=== PATIENT | female | born 1975 | race Caucasian/White ===

== ENCOUNTER 2017-02-06 11:17 | Emergency (ER) | payer OTHER ==
[~2017-02-06] VITALS: Ht 154.9 cm; Wt 64.5 kg
[2017-02-06 11:23] VITALS: Ht 154.9 cm; Wt 64.5 kg
[2017-02-06 12:49] LABS: ADD UMIC NO; URINE BILIRUBIN (Dip) NEGATIVE (NEGATIVE); URINE BLOOD (Dip) NEGATIVE (NEGATIVE); URINE COLOR LT. YELLOW (YELLOW); URINE KETONES (Dip) NEGATIVE (NEGATIVE); URINE LEUKOCYTE ESTERASE (Dip) NEGATIVE (NEGATIVE); URINE NITRITE (Dip) NEGATIVE (NEGATIVE); URINE TOTAL PROTEIN (Dip) NEGATIVE (NEGATIVE); URINE UROBILINOGEN (Dip) 0.2 E.U./dL (0.1-1.0)
[2017-02-06 13:05] LABS: ADD SCAN DIFF NO
[2017-02-06 13:07] LABS: BASOPHILS % 0.5 % (0.0-2.0); EOSINOPHILS # 0.2 10^3/ul (0.0-0.5); HEMOGLOBIN 11.6 g/dl (12.0-16.0); LYMPHOCYTES # 1.8 10^3/ul (0.8-2.9); LYMPHOCYTES % 23.6 % (15.0-51.0); MEAN CORPUSCULAR HEMOGLOBIN 30.1 pg (29.0-33.0); MEAN CORPUSCULAR HGB CONC 33.1 g/dl (32.0-37.0); MEAN CORPUSCULAR VOLUME 90.7 fl (82.0-101.0); MEAN PLATELET VOLUME 10.4 fl (7.4-10.4); MONOCYTE # 0.7 10^3/ul (0.3-0.9); NEUTROPHIL # 4.8 10^3/ul (1.6-7.5); NEUTROPHILS % 64.2 % (39.0-77.0); PLATELET COUNT 321 10^3/UL (140-415); RED BLOOD COUNT 3.86 10^6/ul (4.20-5.40); RED CELL DISTRIBUTION WIDTH 12.1 % (11.5-14.5); WHITE BLOOD COUNT 7.5 10^3/ul (4.8-10.8)
[2017-02-06] MEDS ORDERED: ACET500C5 PO (14:30)
[2017-02-06] MEDS ORDERED: PRENAT PO (14:31)
--- NOTE | 2017-02-06 14:38 | ERD ---
ER Documentation Chief Complaint Date/Time DATE: 02/06/17 TIME: 14:36 Chief Complaint Complains of abdominal pain x 1 month worse today HPI This 5-year-old female complains of lower abdominal pain intermittently for last 2 weeks. She is approximately 8 weeks by dates. Should the pain is greater on the left than the right. She denies any vaginal bleeding, fevers , vomiting. Patient is a G3 para 2. Patient has a concern that her second child has Down syndrome she is worried pain might suggest that there is an abnormality with her such as Down syndrome. ROS All systems reviewed and are negative except as per history of present illness. Medications Home Meds Active Scripts Multivit/Min/Fol Ac/Iron/Pren* ( S*) 1 Tab Tab, 1 TAB PO DAILY, #100 TAB Prov:LULA GREGORY MD 02/06/17 Acetaminophen* (Tylophen*) 500 Mg Capsule, 1 CAP PO Q6H Y for PAIN AND OR ELEVATED TEMP, #15 CAP Prov:LULA GREGORY MD 02/06/17 Allergies Allergies: Coded Allergies: No Known Allergy (Unverified , 02/06/17) PMhx/Soc History of Surgery: No Anesthesia Reaction: No Hx Neurological Disorder: No Hx Respiratory Disorders: No Hx Cardiac Disorders: No Hx Psychiatric Problems: No Hx Miscellaneous Medical Probl: No Hx Alcohol Use: No Hx Substance Use: No Hx Tobacco Use: No Smoking Status: Never smoker Physical Exam Vitals Vital Signs Date Time Temp Pulse Resp B/P Pulse Ox O2 Delivery O2 Flow Rate FiO2 02/06/17 11:23 97.8 83 20 118/62 98 Physical Exam Const: [], [id number] per Head: Atraumatic Eyes: Normal Conjunctiva ENT: Normal External Ears, Nose and Mouth. Neck: Full range of motion..~ No meningismus. Resp: Clear to auscultation bilaterally Cardio: Regular rate and rhythm, no murmurs Abd: Soft, minimal tenderness in the lower abdomen possibly left greater than right. No tenderness at McBurney's point no Tee sign and no rebound per , non distended. Normal bowel sounds Skin: No petechiae or rashes Back: No midline or flank tenderness Ext: No cyanosis, or edema Neur: Awake and alert Psych: Normal Mood and Affect Result Diagram: 02/06/17 1250 Results 24 hrs Laboratory Tests Test 02/06/17 12:20 02/06/17 12:50 02/06/17 14:13 Urine Color LT. YELLOW Urine Clarity CLEAR Urine pH 6.0 Urine Specific [place] 1.025 Urine Ketones NEGATIVE Urine Nitrite NEGATIVE Urine Bilirubin NEGATIVE Urine Urobilinogen 0.2 E.U./dL Urine Leukocyte Esterase NEGATIVE Urine Hemoglobin NEGATIVE Urine Glucose 0.25%% Urine Total Protein NEGATIVE White Blood Count 7.510^3/ul Red Blood Count 3.8610^6/ul Hemoglobin 11.6g/dl Hematocrit 35.0% Mean Corpuscular Volume 90.7fl Mean Corpuscular Hemoglobin 30.1pg Mean Corpuscular Hemoglobin Concent 33.1g/dl Red Cell Distribution Width 12.1% Platelet Count 75167^3/UL Mean Platelet Volume 10.4fl Neutrophils % 64.2% Lymphocytes % 23.6% Monocytes % 9.0% Eosinophils % 2.0% Basophils % 0.5% Nucleated Red Blood Cells % 0.0/100WBC Neutrophils # 4.810^3/ul Lymphocytes # 1.810^3/ul Monocytes # 0.710^3/ul Eosinophils # 0.210^3/ul Basophils # 0.010^3/ul Nucleated Red Blood Cells # 0.010^3/ul Beta HCG, Quantitative 625680.0mIU/ml Bedside Glucose 78mg/dL Procedures/MDM Pelvic ultrasound shows a 8 week intrauterine with pole and yolk sac is subchorionic hemorrhage. There is no adnexal acute findings. Patient did have glucose in the urine without leukocytes, nitrites or blood. Accu-Chek is normal. Patient was stable throughout the ED course. Patient has lower abdominal pain of uncertain etiology of early . There is no signs or symptoms currently to suggest ectopic , appendicitis, acute abdomen, additional acute causes of abdominal pain. She discharged home with prescription for vitamins and primary care follow-up. The patient was stable with no new complaints during the ER course. Clinically, there is no current evidence to suggest meningitis, sepsis, acute abdomen, pneumonia, acute coronary syndrome, pulmonary embolism, or any other emergent condition appearing to require further evaluation or hospitalization. The patient should certainly return for any new or worsening symptoms per the aftercare instructions. They should otherwise follow-up with her primary care doctor for reevaluation this week. Departure Diagnosis: Primary Impression: Abdominal pain affecting Patient Instructions: Abdominal Pain, Early Additional Instructions: Examines normal hoy. Cheque otro vez con ramirez doctor primario en el proximo [place] or regresa para mas o nueva simptomas. LULA GREGORY MD Feb 06, 2017 14:38
== END 2017-02-06 15:03 | disposition home or self-care (01) ==
LOC: FTE 11:17
DX: O26.891 Other specified pregnancy related conditions, first trimester (principal); R10.30 Lower abdominal pain, unspecified; Z3A.08 8 weeks gestation of pregnancy
CPT/HCPCS: 36415; 76801; 81003; 82962; 84702; 85025; 86900; 86901

== ENCOUNTER 2017-09-15 04:25 | Inpatient (IN) | END 2017-09-17 16:05 | disposition home or self-care (01) | DRG 767 ==